=== PATIENT | female | born 1970 | race African-American/Black ===

== ENCOUNTER 2020-02-12 11:00 | Inpatient (IN) | payer BC ==
[2020-04-02] MEDS ORDERED: Thrombin 5000 UNITS/5 ML VIAL ONE (06:41)
[2020-04-02] MEDS ORDERED: Midazolam HCl 2 mg/2 ml Vial ONE (07:01)
[2020-04-02] MEDS ORDERED: Bupivacaine PF 0.5% 30 ML VIAL ONE (07:54)
[2020-04-02] MEDS ORDERED: EPINEPHrine 1 MG/ML AMP ONE (09:03)
[2020-04-02] MEDS ORDERED: Phenylephrine 10 MG/ML VIAL ONE (09:09)
[2020-04-02] MEDS ORDERED: Mag-Al 1200 mg/1200 mg/30 ML UDCUP PO PRN (12:07)
[2020-04-02] MEDS ORDERED: Bisacodyl 10 MG SUPP PR PRN (12:07)
[2020-04-02] MEDS ORDERED: Prochlorperazine 10 MG/2 ML VIAL IM PRN (12:07)
[2020-04-02] MEDS ORDERED: Acetaminophen 325 MG TAB PO PRN (12:07)
[2020-04-02] MEDS ORDERED: Ondansetron PF 4 MG/2 ML Vial IVP PRN (12:07)
[2020-04-02] MEDS ORDERED: diphenhydrAMINE 25 MG CAP PO PRN (12:07)
[2020-04-02] MEDS ORDERED: Morphine 2 MG/ML SYRINGE SLOW IVP PRN (12:07)
[2020-04-02] MEDS ORDERED: traMADol HCl 50 MG TAB PO PRN (12:07)
[2020-04-02] MEDS ORDERED: Acetaminophen/Codeine 30-300mg Tablet PO PRN (12:07)
[2020-04-02] MEDS ORDERED: Glycopyrrolate 0.2 MG/ML 5 ML SYRINGE ONE (12:09)
[2020-04-02] MEDS ORDERED: Dexamethasone 20 MG/5 ML VIAL ONE (12:09)
[2020-04-02] MEDS ORDERED: Ondansetron PF 4 MG/2 ML Vial ONE (12:09)
[2020-04-02] MEDS ORDERED: EPHEDRINE 25 MG/5 ML SYRINGE ONE (12:09)
[2020-04-02] MEDS ORDERED: PHENYLEPHRINE-NS 100 MCG/ML 10 ML SYRINGE ONE (12:09)
[2020-04-02] MEDS ORDERED: Lidocaine 1% PF 5 ML VIAL ONE (12:09)
[2020-04-02] MEDS ORDERED: Rocuronium Bromide 10 MG/ML (10ML VIAL) ONE (12:09)
[2020-04-02] MEDS ORDERED: PROPOFOL 200 MG/20 ML VIAL ONE (12:09)
[2020-04-02] MEDS ORDERED: Promethazine HCl 25 MG/ML VIAL IM PRN (12:20)
[2020-04-02] MEDS ORDERED: Ondansetron HCl/PF 4 MG/2 ML Vial IVP PRN (12:20)
[2020-04-02] MEDS ORDERED: Promethazine HCl 25 MG/ML VIAL SLOW IVP PRN (12:20)
[2020-04-02] MEDS ORDERED: hydrALAZINE 20 MG/ML VIAL SLOW IVP SCH (12:35)
[2020-04-02] MEDS ORDERED: hydrALAZINE 20 MG/ML VIAL SLOW IVP PRN (12:36)
[2020-04-02] MEDS ORDERED: hydrALAZINE 20 MG/ML VIAL ONE (12:37)
[2020-04-02] MEDS ORDERED: Fentanyl 100 MCG/2 ML VIAL ONE ×2 (12:47→13:02)
[2020-04-02] MEDS ORDERED: Scopolamine 1.5 mg/72 hour Patch TD SCH (13:00)
[2020-04-02 14:32] VITALS: BMI 34.1
--- NOTE | 2020-04-02 15:24 | OP ---
DATE OF PROCEDURE: 04/02/2020 HAND HOSE CUTTER: Gary Garcia PA-C PREOPERATIVE INDICATION: Treat pain and prevent neurological deterioration. PREOPERATIVE DIAGNOSIS: Lumbar and lumbosacral foraminal stenosis with radiculopathy, right greater than left at the L4-5 foramen and the L5-S0 (transitional segment) foramen. POSTOPERATIVE DIAGNOSIS: Lumbar and lumbosacral foraminal stenosis with radiculopathy, right greater than left at the L4-5 foramen and the L5-S0 (transitional segment) foramen. PROCEDURES PERFORMED: 1. Decompressive laminectomy with medial facetectomy, foraminotomy at L4-L5 and L5-S0. 2. Transforaminal lumbar interbody arthrodesis, L5-S0. 3. Placement of intervertebral biomechanical device, L5-S0. 4. Pedicle screw iman instrumentation, L5-S0. 5. Posterolateral arthrodesis, L5-S0. 6. Local morselized autograft, morselized allograft. PREOPERATIVE MEDICATIONS: Ancef 2 g IV. DRAIN NUMBER: 1. DRAIN TYPE: 10-English Eduardo. DESCRIPTION OF PROCEDURE: The patient was brought to the operating room. General endotracheal anesthesia was induced. The patient was positioned prone on the Pablo frame with her hips and chest supported by the board attachment to the Pablo frame. A lateral fluoro radiograph was used to plan our incision. The lumbar skin was sterilely prepped and draped. We opened with a 10 blade knife and we controlled bleeding with bipolar monopolar cautery. We dissected to the thoracodorsal fascia and cut the fascia in the midline. We reflected paraspinal muscles off the spinous process of L4, L5, and the sacrum. The first sacral segment was a transitional segment semi attached to the sacrum and we called it S0. We placed self-retaining retractors and a lateral fluoro radiograph confirming the levels upon which we were operating. We then removed the spinous process of L4, L5, and S0. We performed a laminectomy of the inferior portion of the pedicles of L4 all the way through the pedicles of S0. We performed foraminotomies of the exiting L4 nerve roots as well as the L5 nerve roots. Decompression alone was sufficient around the L4 roots at the L4-5 foramen. However, the left-sided L5 nerve root was compressed from collapse of the intervertebral space and disk protrusion in the lateral portion of the foramen. This necessitated facetectomy and wide foraminotomy to decompress as well as expansion of the intervertebral space. We incised the disk space through the foraminotomy opening. We advanced a rectangular-shaped bone rasp into the interspace and measured the height of the interspace to 9 mm. We prepared the endplates for grafting and then brought a 9 mm PEEK intervertebral graft in the field. This was loaded with demineralized bone matrix and morselized autograft and placed in the interspace under radiographic guidance to the appropriate depth. The autograft was obtained from our laminectomy bone, which was cleaned of all soft tissue attachments, morselized, and added to our demineralized bone matrix to form the fusion substrate. We turned our attention to pedicle screw instrumentation. Using bony anatomic landmarks, palpation around medial portion of the pedicles and a lateral fluoro radiograph as our guide, which was entry points for pedicle screws at L5 and S0. We drilled out the entry points and used a bone awl to create our trajectories through the pedicles into the vertebral bodies. We tapped each trajectory and then placed 6.5 mm diameter screws. We used our isometric C-arm to generate a 360-degree image set confirming adequate positioning of our pedicle screw instrumentation. We irrigated with bacitracin irrigation. We decorticated the lateral portion of the transverse processes on both sides and over the decorticated bone. We left demineralized bone matrix and morselized autograft. We brought rods into the screw heads and tightened caps over the rods. We used a gentle compressive force across the interspace to keep the interbody graft in place. Using a torque/counter-torque mechanism, we ensured that the caps were adequately tightened. We tunneled the drain inferiorly through a separate stab incision. We irrigated the center of the wound once again with bacitracin irrigation. We treated the wound with vancomycin powder and we closed in anatomic layers over the drain. This was a clean case, no contamination. Job ID: [id number]
[2020-04-02] MEDS: CEFAZOLIN 2 GM in Premix Bag 1 BAG IVPB SCH ×2 (15:47→23:50)
[2020-04-02] MEDS: Sodium Chloride 0.9% 1,000 ML IV SCH ×2 (15:47→22:49)
[2020-04-02] MEDS: HYDROcodone/Acetaminophen 10/325 mg Tablet PO PRN ×2 (15:55→21:58)
[2020-04-02] MEDS: Cyclobenzaprine 10 MG TAB PO PRN (19:13)
[2020-04-02] MEDS ORDERED: Atorvastatin Calcium 40 MG TAB PO SCH (21:00)
[2020-04-02] MEDS ORDERED: DULoxetine 60 MG CAP PO SCH (21:00)
[2020-04-02] MEDS ORDERED: Pregabalin 75 MG CAP PO SCH (21:00)
[2020-04-02] MEDS ORDERED: LEVOTHYROXINE SODIUM 137 MCG PO SCH (21:00)
[2020-04-03] MEDS: Sodium Chloride 0.9% 1,000 ML IV SCH (02:44)
[2020-04-03] MEDS: HYDROcodone/Acetaminophen 10/325 mg Tablet PO PRN ×3 (02:47→12:16)
[2020-04-03] MEDS ORDERED: Levothyroxine Sodium 25 MCG TAB PO SCH (06:00)
[2020-04-03] MEDS ORDERED: Levothyroxine Sodium 112 MCG TAB PO SCH (06:00)
[2020-04-03] MEDS ORDERED: Albuterol 200 PUFF (6.7GM INHALER) INH SCH (07:00)
[2020-04-03] MEDS: CEFAZOLIN 2 GM in Premix Bag 1 BAG IVPB SCH (08:06)
[2020-04-03] MEDS: Cyclobenzaprine 10 MG TAB PO PRN (08:08)
[2020-04-03] MEDS ORDERED: Triamterene/Hydrochlorothiazide 37.5 mg/25 mg Tablet PO SCH (09:00)
[2020-04-03] MEDS ORDERED: Bupropion 150 MG XL TAB PO SCH (09:00)
[2020-04-03] MEDS ORDERED: Pantoprazole 40 MG VIAL IVP SCH (09:00)
[2020-04-03 11:30] VITALS: BP 130/91; TEMP 99.2
--- NOTE | 2020-04-03 12:52 | PRG ---
DATE OF SERVICE: 04/03/2020 This is a postoperative progress note. SUBJECTIVE: Ms. Padilla is now 1 day postoperative after undergoing TLIF procedure yesterday. Her vitals remained stable with a heart rate up to 94 and blood pressure 130/91. She has remained afebrile. Her AGUSTÍN drain output was 10 mL overnight. Her Fitzgerald catheter has been removed, and she has been able to urinate without difficulty. Her pain has been well controlled with [place] 10/325 and Flexeril. The patient states that she is doing very well at this time and is requesting to be discharged home today. She has good movement and strength throughout all extremities. She has been ambulatory without difficulty. OBJECTIVE: On exam, she has 5/5 strength throughout her upper and lower extremity myotomes bilaterally. Sensation to light touch is intact and equal throughout extremities. Lumbar incision is clean, dry, and intact. No drainage present. PLAN: Plan will be to discharge the patient home today. She was provided with appropriate postoperative pain medications. Discussed postoperative restrictions and wound care. AGUSTÍN drain was removed without difficulty. All questions were answered at this time. The patient will follow up for a postoperative evaluation as directed. Job ID: [id number]
== END 2020-04-03 13:48 | disposition home or self-care (01) | DRG 455 ==
LOC: SURG A 04-02 03:28
PROVIDERS: ADMIT Neurological Surgery; ATTEND Neurological Surgery
PROC: 0SG30AJ Fusion of Lumbosacral Joint with Interbody Fusion Device, Posterior Approach, Anterior Column, Open Approach (ICD-10-PCS; principal; 2020-04-02)
PROC: 0SG3071 Fusion of Lumbosacral Joint with Autologous Tissue Substitute, Posterior Approach, Posterior Column, Open Approach (ICD-10-PCS; 2020-04-02)
PROC: 01NB0ZZ Release Lumbar Nerve, Open Approach (ICD-10-PCS; 2020-04-02)
PROC: 01NR0ZZ Release Sacral Nerve, Open Approach (ICD-10-PCS; 2020-04-02)
DX: M48.07 Spinal stenosis, lumbosacral region (principal); M48.061 Spinal stenosis, lumbar region without neurogenic claudication; M54.16 Radiculopathy, lumbar region; M54.17 Radiculopathy, lumbosacral region; E89.0 Postprocedural hypothyroidism; Z90.710 Acquired absence of both cervix and uterus; Z79.899 Other long term (current) drug therapy; Z79.890 Hormone replacement therapy
CPT/HCPCS: 76000; 80048; 85027; 85610; 85730; 87635; C9113; J0171; J0360; J0690; J1100; J2001; J2250; J2370; J2405; J2704; J3010; J3370; S0020; U0003

== ENCOUNTER → 2020-02-12 | Day surgery (SDC) | payer BC | LOC: LABBT 05:23 → EDSTATUS 02-15 16:30 | PROVIDERS: ATTEND Neurological Surgery | DX: M48.061 Spinal stenosis, lumbar region without neurogenic claudication (principal); M43.16 Spondylolisthesis, lumbar region; M54.16 Radiculopathy, lumbar region ==

== ENCOUNTER 2020-03-30 06:10 | Outpatient (CLI) | payer BC, OTHER ==
[2020-03-30 13:18] LABS: Hemoglobin 16.1 g/dL (12.0-16.0); Mean Corpuscular HGB CONC 31.2 g/dL (32.0-36.0); Mean Corpuscular Hemoglobin 29.2 pg (27.0-31.0); Mean Corpuscular Volume 93.8 fL (78.0-98.0); Mean Platelet Volume 8.7 fL (7.4-10.4); Platelet Count 321 thou/uL (130-400); RBC Distribution Width 13.9 % (11.5-14.5); White Blood Cell (WBC) Count 18.6 thou/uL (4.8-10.8)
[2020-03-30 13:37] LABS: INR-International Normal Ratio 0.9; PTT 29.8 SEC (22.9-36.1); Prothrombin Time 11.8 sec (12.0-14.7)
[2020-03-30 13:45] LABS: Anion Gap 16 mmol/L (10-20); BUN (Urea Nitrogen) 12 mg/dL (7.0-18.7); Calc. Creatinine Clearance 0 mL/min (70-130); Calcium 9.9 mg/dL (7.8-10.44); Carbon Dioxide 28 mmol/L (22-29); Chloride 98 mmol/L (98-107); Estimated GFR-MDRD 63; Glucose 112 mg/dL (70-105); Potassium 3.5 mmol/L (3.5-5.1); Sodium 138 mmol/L (136-145)
[2020-03-30 18:39] LABS: SARS-CoV-2 MS2 Positive; SARS-CoV-2 N Gene Negative; SARS-CoV-2 S Gene Negative; SARS-CoV-2 orf1ab Negative
== END 2020-03-30 06:11 | disposition home or self-care (01) ==
LOC: LABBT 06:10
PROVIDERS: ATTEND Neurological Surgery
DX: Z01.812 Encounter for preprocedural laboratory examination (principal); Z11.59 Encounter for screening for other viral diseases; M51.36 Other intervertebral disc degeneration, lumbar region; M48.061 Spinal stenosis, lumbar region without neurogenic claudication
CPT/HCPCS: 80048; 85027; 85610; 85730; 87635; U0003

== ENCOUNTER 2020-03-30 11:35 | Emergency (ER) | payer BC | END 2020-03-30 11:46 | disposition home or self-care (01) | LOC: ERS 11:35 | DX: Z53.21 Procedure and treatment not carried out due to patient leaving prior to being seen by health care provider (principal) ==

== ENCOUNTER 2020-05-03 16:09 | Emergency (ER) | payer BC ==
--- NOTE | 2020-05-03 17:24 | ULT ---
ULTRASOUND DOPPLER DUPLEX VENOUS RIGHT LOWER EXTREMITY: DATE: 05/03/2020 HISTORY: 49-year-old female with right lower extremity pain TECHNIQUE: Grayscale, color-flow, and spectral analysis, of major veins of right lower extremity. FINDINGS: There is demonstration of blood flow with normal compressibility, of the right common femoral, profun da femoral, greater saphenous, femoral, popliteal, and posterior tibial, veins. IMPRESSION: Negative. No deep venous thrombosis of right lower extremity.
== END 2020-05-03 18:00 | disposition home or self-care (01) ==
LOC: ERS 16:09
DX: G89.18 Other acute postprocedural pain (principal); M54.31 Sciatica, right side; M79.604 Pain in right leg; E03.9 Hypothyroidism, unspecified; I10 Essential (primary) hypertension; F32.9 Major depressive disorder, single episode, unspecified; F17.210 Nicotine dependence, cigarettes, uncomplicated; Z79.899 Other long term (current) drug therapy

== ENCOUNTER 2021-06-05 14:58 | Outpatient (CLI) | payer BC, OTHER | END 2021-06-05 14:59 | disposition home or self-care (01) | LOC: BICRAD 14:58 | PROVIDERS: ATTEND Internal Medicine | DX: Z02.71 Encounter for disability determination (principal) ==